=== PATIENT | female | born 1990 | race Caucasian/White ===

== ENCOUNTER 2024-03-02 23:19 | Inpatient (IN) | payer OTHER, SELFPAY ==
[2024-03-02] VITALS (7 sets, daily range): BP systolic 91–110; BP diastolic 49–84; BMI 27.5
[2024-03-02 18:04] LABS: Hematocrit 38.8 % (37.0-47.0); Hemoglobin 13.3 g/dL (12.0-16.0); Mean Corp Hgb Conc. 34.3 g/dL (33.0-37.0); Mean Corpuscular Hgb 29.2 pg (27.0-31.0); Mean Corpuscular Volume 85.3 fL (81.0-99.0); Platelet Count 322 10^3/uL (130-400); Red Blood Cell Count 4.55 10^6/uL (4.20-5.40)
[2024-03-02 18:17] LABS: ALT (SGPT) 53 U/L (0-35); AST (SGOT) 33 U/L (14-36); Albumin 4.3 g/dl (3.5-5.0); Alkaline Phosphatase 66 U/L (38-126); Blood Urea Nitrogen 12 mg/dl (7-17); Calcium 9.5 mg/dl (8.4-10.2); Carbon Dioxide 23 mmol/L (22-30); Chloride 100 mmol/L (98-107); Estimated Creatinine Clearance 108 ml/min; Glucose 121 mg/dl (70-99); Potassium 4.1 mmol/L (3.5-5.1); Sodium 134 mmol/L (135-145); Total Bilirubin 0.9 mg/dl (0.2-1.3); Total Protein 6.9 g/dl (6.3-8.2); eGFR > 60.00
--- NOTE | 2024-03-02 18:17 | ED.GENMED ---
History of Present Illness
General
Chief Complaint: Medication Reaction
Source: patient
Exam Limitations: none
Time Seen by Provider: 03/02/24 17:41
Nursing documentation reviewed up to this point in time: agreed with
Travel History
Have you had any contact with someone who has COVID-19?: No
Do you have any symptoms of coronavirus? Fever > 100 degrees, chills, cough, shortness of breath, sore throat, loss of taste or smell, muscle aches, or headache?: No
History of Present Illness
History of Present Illness:
This a pleasant 34-year-old female that presents with erythema, fever, chest pain, and shortness of breath. She does have a brain tumor and is being treated by [facility]. Patient has been on Temodar. She is in a cycle. She had 2
weeks of it and developed a rash. They paused it temporarily and she restarted it yesterday. She states that her rash returned, much more severe. She comes in today for this rash concerned that she might be having a medication reaction to her
Temodar. She did have a fever and chills. She is on oral control.
Vital signs are stable. Patient not hypoxic
Nursing note reviewed. I agree with nursing documentation up to this point in time.
Home Meds and allergies reviewed.
NUMBER AND COMPLEXITY OF PROBLEMS ADDRESSED AT THE ENCOUNTER
� Chronic conditions affecting care:
� Acute Exacerbation and/or Progression of Chronic Illness:
� Differential Diagnosis includes: Medication reaction, pulmonary embolus, viral syndrome, neutropenic fever
AMOUNT AND/OR COMPLEXITY OF DATA TO BE REVIEWED AND ANALYZED
I performed an independent evaluation of the following and my interpretation is:
EKG:
CT:
X-rays:
Ultrasound:
Laboratory Studies:
Other:
Review of other/old records:
Clinical information was obtained by an independent historian:
Prescriptions/Medications Considered but not given:
Further testing considered but not performed:
RISK OF COMPLICATIONS AND/OR MORBIDITY OR MORTALITY OF PATIENT MANAGEMENT
Social determinants of health affecting care: Good Social Support
Discussion with other providers:
Escalation of care including admission/observation vs risk of discharge considered:
CRITICAL CARE NOTE:
Total Time (exclusive of procedures):
Update:
Past History
Past History
ED Past Medical History: None
ED Past Surgical History: None
Social History
Tobacco: Non-smoker
Alcohol: Occasional
Drug: None
Personal:
Living: with family
Phy Exam
General Physical Exam
General Presentation: well appearing
General age: appears stated age
General Skin: warm and dry
General Habitus: normal
General Mental: alert
General Hydration: appears well hydrated
ENT Exam
ENT Exam: EOMI, pharynx normal, neck supple and normocephalic
Eye Exam
Eye Exam: PERRL, cornea clear and conjunctiva normal
Cardiovascular Exam
Cardiovascular Exam: no edema, no murmur, normal peripheral pulses and tachycardia
Pulmonary Exam
Pulmonary Exam: lungs clear, no respiratory distress, no rales, no crackles, no rhonchi, no stridor, no wheezing and no cough
Gastrointestinal Exam
Gastrointestinal Exam: normal bowel sounds, non tender, soft, no organomegaly, no pulsatile mass and non distended
Neurological Exam
Neurological Exam: alert, oriented x3, no motor deficits and speech normal
Musculoskeletal Exam
Musculoskeletal Exam: full ROM, no edema, neuro vasc intact and other (No nuchal rigidity or other signs of meningismus)
Skin Exam
Skin Exam: normal color, warm/dry, no rash and no petechia
Psychiatric Exam
Psychiatric Exam: normal mood/affect
Course
Orders/Labs/Results
Orders:
Orders
03/02/24 17:39
EKG [Electrocardiogram (*1)] Urgent
Reason for Study: Chest Pain
EKG- Treatment ONCE
03/02/24 17:53
Complete Blood Count/With Diff Urgent
Comment: ADDON
Comprehensive Metabolic Panel Urgent
Troponin I Urgent
03/02/24 18:16
CT Chest Pe Study Urgent
Comment:
Reason For Exam: On chemotherapy, shortness of breath, tachycardia,
03/02/24 18:22
Add On- LAB Urgent
Tests Added?: manual diff
03/02/24 18:43
Diphenhydramine [Benadryl] 25 mg IV NOW STA
03/02/24 19:25
Add On - Microbiology Urgent
Tests Added?: beta hcg
Add On- LAB Urgent
Tests Added?: bhcg
03/02/24 19:27
0.9% Sodium Chloride 500 ml [Nss] 500 ml IV BOLUS
03/02/24 19:34
Beta HCG Quantitative Urgent
Comment: ADD ON
03/02/24 20:41
Acetaminophen [Tylenol] 650 mg PO NOW STA
03/02/24 21:00
COVID-19 Antigen Urgent
Source: Nasal Swab
Influenza A+B Rapid Molecular Urgent
DIOMEDES Source: Nasal Swab
Specimen Description:
03/02/24 22:27
Urine Culture Urgent
DIOMEDES Source: Urine
Specimen Description:
03/02/24 22:43
Lactic Acid Q4H
Comment: CANCEL 2nd LACTIC ACID IF 1st LACTIC ACID IS LESS THAN 2
Blood Culture Q30M
DIOMEDES Source: Blood/Venous
Specimen Description:
Blood Culture Q30M
DIOMEDES Source: Blood/Venous
Specimen Description:
03/02/24 22:47
Admit/Transfer Patient As Directed
Co-Sign Provider:
Level of Care: Inpatient admission
Assign to:: Medical/Surgical
Physician / Group: Hospitalist
Diagnosis: Acute drug reaction
Reason for Hospitalization: Persistent fever
Expected length of stay greater than two midnights?: Yes
ELOS- Estimated Length of Stay in days: 2
I certify the patient meets the requirements for IP care: Yes
03/02/24 22:50
Code Status As Directed
Resuscitation Status: Full Code
03/02/24 22:59
Acetaminophen [Tylenol] 650 mg PO NOW STA
Cefepime HCl [Maxipime] 2,000 mg IV NOW STA
03/02/24 23:00
Flush (0.9% Sodium Chloride) [Flush (Nss)] See Dose Instructions IV PER PROTOCOL
Sterile Water [Sterile Water For Injection] 10 ml IV ONCE ONE
03/03/24 00:53
0.9% Sodium Chloride 1000 ml [Nss] 1,000 ml IV 75 mls/hr
Acetaminophen [Tylenol] 650 mg PO Q4HPRN PRN
Bisacodyl [Dulcolax] 10 mg RECTAL [id number] PRN
Diphenhydramine [Benadryl] 25 mg IV Q4HPRN PRN
Docusate W/Senna [Senokot-S] 1 tablet PO BIDPRN PRN
Ondansetron Injectable [Zofran] 4 mg IV Q6HPRN PRN
Ondansetron Injectable [Zofran] 4 mg IV Q6HPRN PRN
Polyethylene Glycol Powder [Miralax] 17 grams PO DAILYPRN PRN
03/03/24 00:53
Echo 2D MMode Color/Doppler Routine
Reason for Study: pleuritc chest pain, eval pericardial effusion / pericarditis
Consult Notification Routine
Specialty to Notify: Infectious Disease
INFECTIOUS DISEASE CONSULT Routine
Consulting Provider: Rocío Kaplan
Was physician already notified: No
Reason for consult: fever of unknown source
Urinalysis Reflex To Culture Routine
Activity As Directed
Activity Level: With Assistance
Vital Signs As Directed
Frequency: Per unit guidelines
DX Deep Vein Thrombosis Video Routine
03/03/24 06:00
Basic Metabolic Panel IN AM
Complete Blood Count/No Diff IN AM
ESR [Erythrocyte Sed Rate] IN AM
03/03/24 08:00
Triamcinolone Cream [Aristocort/Triamcinolone 0.1% Cream] See Dose Instructions TOPICAL TID
03/03/24 11:00
Cefepime HCl [Maxipime] 2,000 mg IV Q12H
03/03/24 Dinner
Regular
03/03/24 18:00
Enoxaparin Sodium [Lovenox] 40 mg SC QPM
Abnormal Lab Results
03/02/24
17:53
WBC 16.0 H 10^3/uL
(4.8-10.8)
Abs Immat Gran (auto) 0.1 H 10^3/uL
(0-0.05)
Absolute Neuts (auto) 14.4 H 10^3/uL
(1.4-6.5)
Absolute Lymphs (auto) 0.3 L 10^3/uL
(1.2-3.4)
Absolute Monos (auto) 0.7 H 10^3/uL
(0.1-0.6)
Neutrophils % 92.7 H %
(42.2-75.2)
Lymphocytes % 1.8 L %
(20.5-51.1)
Sodium 134 L mmol/L
(135-145)
Glucose 121 H mg/dl
(70-99)
ALT 53 H U/L
(0-35)
03/02/24 17:53
03/02/24 17:53
Vital Signs
Initial and Last Documented VS:
Initial Vital Signs
Temp Pulse Resp BP Pulse Ox
100.4 F H 129 20 98/66 99
03/02/24 16:51 03/02/24 16:51 03/02/24 16:51 03/02/24 16:51 03/02/24 16:51
Last Documented Vital Signs
Temp Pulse Resp BP Pulse Ox
98.8 F 109 16 98/57 96
03/03/24 00:59 03/03/24 00:59 03/03/24 00:59 03/03/24 00:59 03/03/24 00:59
*Critical Care Note
Total Time (30-74mins, 75-104mins- exclusive of procedures): Not Applicable
Update Note
Update Note:
CTA CHEST
IMPRESSION:
Good contrast bolus. Limited by respiratory motion artifact. No central pulmonary embolism seen.
No thoracic aortic aneurysm.
No focal consolidation or pleural effusion.
ED Attending Note
-
Portions of this chart may have been created with voice recognition software.� Occasional wrong word or��sound alike� substitutions may have occurred due to the inherent limitations of voice recognition software.
Discharge Plan
Departure
Patient Disposition: Admit
Date of Disposition: 03/02/24
Time of Disposition: 21:45
Admit to: Telemetry
Presentation/result/management discussed w/ accepting MD/DO: Hospitalist
Condition: Good
Discharge Problem:
Allergic reaction, Fever
Interventions
Interventions:
*Risk Screen - Suicide Last Done: 03/02/24 17:36
*General Assessment Last Done: 03/02/24 17:36
*Neglect/Abuse Screening Last Done: 03/02/24 17:36
ED- Fall Risk Assessment Last Done: 03/03/24 00:46
*ED COVID-19 Vaccine History Last Done: 03/02/24 16:51
*Nursing Disposition Last Done: 03/03/24 00:46
ED-Skin Assessment Last Done: 03/02/24 18:02
ED- Pulmonary Assessment Last Done: 03/02/24 18:02
Discharge Date and Time
Discharge Date/Time: 03/03/24 00:46
[2024-03-02 18:28] LABS: % Basophils 0.2 % (0-2); % Eosinophils 0.5 % (0-6); % Immature Granulocytes 0.4 % (0-0.5); % Lymphocytes 1.8 % (20.5-51.1); % Monocytes 4.4 % (1.7-9.3); % Neutrophils 92.7 % (42.2-75.2); Absolute Eosinophils 0.1 10^3/uL (0-0.7); Absolute Immature Granulocytes 0.1 10^3/uL (0-0.05); Absolute Lymphocytes 0.3 10^3/uL (1.2-3.4); Absolute Monocytes 0.7 10^3/uL (0.1-0.6); Absolute Neutrophils 14.4 10^3/uL (1.4-6.5); Nucleated Red Blood Cells % 0 %
[2024-03-02 18:29] LABS: Troponin I < 0.012 ng/ml
[2024-03-02] MEDS: BENADRYL 25 MG IV (18:53)
[2024-03-02] MEDS: NSS 500 IV (19:32)
[2024-03-02 20:23] LABS: Beta HCG Quantitative < 2.39 mIU/ml
[2024-03-02] MEDS: TYLENOL 650 MG PO ×2 (21:00→23:29)
[2024-03-02 21:43] LABS: COVID-19 Antigen Negative (Negative)
--- NOTE | 2024-03-02 22:30 | HPS.HSE ---
Addendum entered and electronically signed by Estrella Sullivan MD 03/14/24 18:42:
Correction to H&P:
The patient is a 34 y.o female.
Original Note:
Family Physician
-
Family Physician: Memo Martines
Chief Complaint
-
Fever and a rash
History of Present Illness
This is a 4-year-old female with past medical history of brain cancer recently diagnosed and initiated on radiation therapy and chemotherapy who comes into the emergency department with fever and rash after being restarted on the chemotherapy
temozolomide.
Patient reported that she was radiation therapy and chemotherapy for 2 weeks. Thereafter she developed a rash and fever. He had extensive evaluation. There was neutropenia. Was thought to be a drug rash and the temozolomide was discontinued.
Bactrim was also continued. She had persistent fevers and patient was started on Levaquin which she took for 7 days. Blood cultures were negative. No oral infectious source identified. She was thought to have of drug reaction on a viral
infection. Ultimately over the next few days white count came back to normal. She was also prescribed a topical steroid cream and she has been having improvement with this as well. On follow-up the patient was told to restart the temozolomide
which she took today. Within about 1 hour of taking the medication she started having generalized erythema with worsening lesions throughout body and limbs. Denies pruritus. She also reports feeling short of breath and having some palpitations and
substernal sharp chest pain with deep inspiration. Deep inspiration causes mild non-productive cough. Denies any wheezing. She reports headache. She denies any neck pain or stiffness. She denies any sore throat. She denies any oral discomfort.
On arrival in the ED she was normotensive, she was febrile to 102 and tachycardic to the 110s. EKG shows sinus tach at 104. She had chest CT study which was negative for PE and showed no acute infiltrates. White count was 16,000 with an 80%
neutrophils. No bands. Hemoglobin and platelet counts were within normal limits. Chemistries were within normal limits. Troponin was negative.
Medical History
Past Medical History
Past Medical History: Reports Cancer (Brain cancer)
Additional Past Medical History:
Brain Cancer
Past Surgical History: Reports None
Social History
Tobacco: Non-smoker
Alcohol: None
Drug: None
Personal:
Living: With Family
Employment: Employed
Family History
Family History: Not pertinent
Allergies / Home Medications
Allergies reflects when Allergies were last updated in [employer] (acquired by [employer] in 2014).
Home Medications with original date entered in [employer] (acquired by [employer] in 2014)
Allergy/Medication List:
Allergies
Allergy/AdvReac Type Severity Reaction Status Date / Time
No Known Allergies Allergy Unverified 03/02/24 16:52
Home Medications
Lactobac no.2-Bifidobac no.1-S. thermo 112.5 billion cell capsule (Visbiome) 1 cap PO DAILY Supplement 11/03/23
ascorbic acid (vitamin C) 500 mg tablet (Vitamin C) 500 mg PO DAILY Supplement 11/03/23
celecoxib 200 mg capsule 200 mg PO BIDPRN PRN nereve pain 11/03/23
norgestimate 0.18 mg/0.215 mg/0.25 mg-ethinyl estradiol 25 mcg tablet (Fsf-Pn-Aoiqxfgq) 1 tab PO QPM Hormonal Agent 11/03/23
vitamin B complex 1 tab PO DAILY Supplement 11/03/23
acetaminophen 325 mg tablet 650 mg (2 x 325 mg) PO Q4HPRN PRN mild pain/PARRA/temp> 100.4F #1 tab 11/04/23
Review of Systems
-
History Source: Patient and Family
Constitutional: Reports Fever
EENT: Reports No Symptoms
Respiratory: Reports Trouble Breathing
Cardiac: Reports Chest Pain
Abdomen/GI: Reports No Symptoms
: Reports No Symptoms
Musculoskeletal: Reports No Symptoms
Skin: Reports Rash
Neurological: Reports No Symptoms
Endocrine: Reports No Symptoms
Hematologic/Lymphatic: Reports No Symptoms
Psych: Reports No Symptoms
Physical Exam
Vital Signs
Vital Signs
Temp Pulse Resp BP Pulse Ox
101.9 F H 123 28 100/59 95
03/02/24 22:25 03/02/24 22:24 03/02/24 22:24 03/02/24 22:00 03/02/24 22:24
Physical Exam
General: Well Developed, Well Nourished and Appears in Distress
HEENT: NormoCephalic, Moist mucous membranes, Atraumatic, PERRLA and [place] Conjunctivae
Respiratory: Clear
Cardiac: S1/S2 and Tachycardia
Breast: Deferred by me
GI: Soft, Non Tender, Non Distended and Normal Bowel Sounds
Rectal: Deferred by Provider
Genito-urinary: Deferred by me
Musculoskeletal: No Clubbing, No Cyanosis and No Edema
Skin: Warm, Dry and Rash
Neuro: AO x 3
Hematologic/Lymphatic: Lymphadenopathy (left cervical lymphadenopathy)
Psych: Calm
Laboratory Results
-
03/02/24 17:53
03/02/24 17:53
Laboratory Results
Total Bilirubin 0.9 mg/dl (0.2-1.3) 03/02/24 17:53
AST 33 U/L (14-36) 03/02/24 17:53
ALT 53 U/L (0-35) H 03/02/24 17:53
Alkaline Phosphatase 66 U/L (38-126) 03/02/24 17:53
Troponin I < 0.012 ng/ml 03/02/24 17:53
Data Reviewed
-
CT Scan: Report Reviewed by me
Medical Tests (Nuc Med, Echo, EKG etc): Image Personally Visualized and interpreted
Lab Data: Labs Reviewed by me
Old Records: Reviewed
Impression/Plan
-
IMPRESSION:
34 y.o female with brain CA s/p radiation tx and currently on oral chemotherapy who comes in with generalized erythematous rash and target-like lesions after restarting her chemo (temozolamide). She had 2 weeks of the temozolomide then developed a
very similar reaction last week. She reported that she developed rash and fevers approximately 5 hours after taking the medications. Oncology evaluated her and thought she had reaction to temozolomide or bactrim. Temozolamide discontinued and
rash improved. She was then restarted on this medication today with resultant rash (erythematus papules and macules and occasional target like lesions without the erythematous rings. She is tachycardic and febrile but hemodynamically stable. The
lesions are c/w drug eruptions and possibly SJS. However no mucusal involvment, no desquamation. Unlikely SJS. Possibly viral. She has a skin biopsy pending. She has headach but no meningeal signs.
PLAN:
Fever and rash - Suspect acute drug reaction vs an infectious process. No source of infection based on imaging and physical exam. Cannot rule out bacteremia. She is not neutropenic so cannot be said to have neutropenc fever. Possibly EM.
- admit to general medical floor
- discontinue temozolomide (per on-call oncologist)
- s/p benadryl in ED
- supportive care with benadryl, fluids. Holding systemic steroids for now
- given persistent fever and leukocytosis, blood cultures sent and start cefepime, d/c antibiotics if she defervesced after holding temozolomide
- ID consultation
Pleuritic chest pain - Substernal pleuritic chest pain. No PE. No acute consolidation. No effusion. Pain is not reproducible. No wheezing or productive cough. Possibly pneumonitis vs pericarditis.
- echo
- check inflammatory panels
- patient cannot tolerate NSAIDs while on temozolomide
- follow up skin biopsy
Brain Ca
- follow up with [place] [facility] if tomorrow if d/c or monday for her chemo follow up.
DVT PPX with lovenox sq
Full Code
[2024-03-02] MEDS: MAXIPIME 2000 MG IV (23:29)
[2024-03-02] MEDS: STERILE WATER FOR INJECTION 10 ML IV (23:30)
[2024-03-03] VITALS: BP 96/60
[2024-03-03 00:58] VITALS: BMI 27.0
[2024-03-03 00:59] VITALS: BP 98/57
[2024-03-03] MEDS: NSS 1000 IV ×2 (01:21→14:15)
[2024-03-03 06:16] LABS: Urine Albumin Negative (Neg - Trace); Urine Bilirubin Negative (Negative); Urine Character Clear (Clear); Urine Color Yellow; Urine Glucose Negative (Negative); Urine Ketone Negative (Negative); Urine Leukocyte Negative (Negative); Urine Nitrite Negative (Negative); Urine Occult Blood Negative (Negative); Urine Urobilinogen Negative (Neg - 1+)
[2024-03-03 07:00] VITALS: BP 85/63
[2024-03-03] MEDS: TYLENOL 650 MG PO ×2 (08:04→12:05)
[2024-03-03] MEDS: ARISTOCORT/TRIAMCINOLONE 0.1% CREAM 1 APPLIC TOPICAL ×2 (08:05→15:18)
[2024-03-03] MEDS: STERILE WATER FOR INJECTION 10 ML IV (08:05)
[2024-03-03] MEDS: MAXIPIME 2000 MG IV (08:06)
[2024-03-03 08:53] LABS: Hematocrit 34.2 % (37.0-47.0); Hemoglobin 11.5 g/dL (12.0-16.0); Mean Corp Hgb Conc. 33.6 g/dL (33.0-37.0); Mean Corpuscular Hgb 29.1 pg (27.0-31.0); Mean Corpuscular Volume 86.6 fL (81.0-99.0); Mean Platelet Volume 9.8 fL (7.4-10.4); Platelet Count 289 10^3/uL (130-400); Red Blood Cell Count 3.95 10^6/uL (4.20-5.40); Red Cell Dist. Width 12.2 % (11.5-14.5); White Blood Cell Count 8.8 10^3/uL (4.8-10.8)
[2024-03-03 09:25] LABS: Blood Urea Nitrogen 10 mg/dl (7-17); Calcium 8.7 mg/dl (8.4-10.2); Carbon Dioxide 24 mmol/L (22-30); Chloride 103 mmol/L (98-107); Estimated Creatinine Clearance 107 ml/min; Glucose 93 mg/dl (70-99); Potassium 3.9 mmol/L (3.5-5.1); Sodium 135 mmol/L (135-145); eGFR > 60.00
[2024-03-03 09:36] LABS: Erythrocyte Sed Rate 14 mm/hour (0-20)
--- NOTE | 2024-03-03 14:44 | CON.ID ---
Consultation
-
Date/Time Consultation Requested: 03/03/24 00:53
Date/Time Consultation Performed: 03/03/24 14:44
Requesting Provider: Dr Amador
Performing Provider: Dr Kaplan
Reason for Consultation: fever of unknown source
Chief Complaint / Past History
Chief Complaint
Fever and a rash
History of Present Illness
Ms Casas is a 34 year old female with history of brain cancer on radiation/chemotherapy (temozolomide) for the last two weeks. She then developed a rash and fever, also neutropenia. Drug rash was considered and temozolomide was discontinued.
Bactrim was also discontinued; she will get ppx through [facility]. Fevers persisted She was started on levaquin which she took for 7 days withtou imporvement. Leukocytosis resolved. Topical steroid cream improved the rash. She restarted temozolmide
of the day of admission and within 1 hour developed generalized erytheam and worsening rash throughout the body. No pruritus. New shortness of breath, palpitations and pleuritic chest pain. New mild, nonproductive cough, without wheezing.
Since arrival here she was initially febrile to 101.9, bp initially hypotensive then improved this AM again running hypotensive 85/63, wbc on arrival 16 now 8.8, hgb 11.5, plt 289, L shift noted on arrival, cr 0.7, CT chest PE study: no PE or acute
CP process, blood cultures x2 no growth to dateflu negative, covid ag negative, ua negative currently on cefepime, ID is consutled for assistance with management.
Past History
Additional Past Medical History:
as per hpi
Additional Past Surgical History:
none
Allergy History:
No Known Allergies Allergy (Unverified 03/02/24 16:52)
Medications Reviewed: Yes
Social History
Tobacco: Non-Smoker
Alcohol: None
Drug: None
Family History
Family History: Not Pertinent
Review of Systems
Review of Systems
General: Fever and Chills
All systems: All other systems were reviewed and were negative
Vital Signs
Temp Pulse Resp BP Pulse Ox
98.5 F 94 16 85/63 98
03/03/24 07:00 03/03/24 07:00 03/03/24 07:00 03/03/24 07:00 03/03/24 07:00
Physical Exam
Physical Exam
Constitutional: No Acute Distress
Cardiovascular: Regular Rate and S1/S2; Negative Murmur or Rub
Pulmonary: Clear and Symmetric; Negative Wheezes, Rales or Rhonchi
Gastrointestinal: Soft, Non Tender, Non Distended and Normal Bowel Sounds
Skin: Warm and Dry; Negative Rash or Jaundice
Lab / Diagnostic Study Results
03/03/24 08:34
03/03/24 08:34
Abs Immat Gran (auto) 0.1 10^3/uL (0-0.05) H 03/02/24 17:53
Absolute Neuts (auto) 14.4 10^3/uL (1.4-6.5) H 03/02/24 17:53
Absolute Lymphs (auto) 0.3 10^3/uL (1.2-3.4) L 03/02/24 17:53
Absolute Monos (auto) 0.7 10^3/uL (0.1-0.6) H 03/02/24 17:53
Absolute Basos (auto) 0.0 10^3/uL (0-0.2) 03/02/24 17:53
Immature Gran % 0.4 % (0-0.5) 03/02/24 17:53
Neutrophils % 92.7 % (42.2-75.2) H 03/02/24 17:53
Lymphocytes % 1.8 % (20.5-51.1) L 03/02/24 17:53
Monocytes % 4.4 % (1.7-9.3) 03/02/24 17:53
Eosinophils % 0.5 % (0-6) 03/02/24 17:53
Basophils % 0.2 % (0-2) 03/02/24 17:53
ESR 14 mm/hour (0-20) 03/03/24 08:34
Lactic Acid Cancelled 03/03/24 02:45
Microbiology Results
Micro:
03/02/24 22:43 Blood Culture - Pending
Blood/Venous
03/02/24 22:43 Blood Culture - Pending
Blood/Venous
03/02/24 21:00 Influenza Types A & B (KIERSTEN) - Final
Nasal Swab Negative for Influenza A & B, NAAT
Negative results must be combined with clinical observations
and patient history.
Nucleic Acid Amplification test (NAAT)performed on the
[employer] platform.
Assessment / Plan
Probable adverse drug reaction to temozolomide
Fever - resolving
Leukocytosis - resolved
- follow blood cultures
- ua negative
- CT chest no evidence of infection
- rash improving
- strongly suspect drug reaction, no current evidence of infection
- tells me her radiation oncologist says treatment shouldnt be interrupted
- she has levaquin at home and can continue that for another 3 days
- I recommend discharge now; notified hospitalist of my opinion
[2024-03-03 15:00] VITALS: BP 101/65
[2024-03-03] MEDS: STERILE WATER FOR INJECTION IV (15:20)
[2024-03-03] MEDS: MAXIPIME IV (15:20)
--- NOTE | 2024-03-03 15:34 | W.PN.HOSP.TC ---
Today's Communication/Plan
-
Discharge today
Assessment / Plan
Assessment / Plan
Physical Exam
General: Not in acute distress
HEENT: Normocephalic, Moist mucous membranes, Atraumatic
Respiratory: Clear to Auscultation Bilaterally
Cardiac: S1/S2 and RRR
GI: Soft, Non Tender, Non Distended and Normal Bowel Sounds
Musculoskeletal: No Cyanosis and No Edema
Skin: Warm, Dry and Rash
Neuro: AAO x 3
Psych: Calm
Assessment/Plan
34 y.o female with brain CA s/p radiation tx and currently on oral chemotherapy who came in with generalized erythematous rash and target-like lesions after restarting her chemo (temozolamide). She had had 2 weeks of the temozolomide then developed
a very similar reaction last week. She reported that she developed rash and fevers approximately 5 hours after taking the medication. Oncology evaluated her and thought she had reaction to temozolomide or bactrim. Temozolamide discontinued and
rash improved. She was then restarted on this medication yesterday with resultant rash (erythematus papules and macules and occasional target like lesions without the erythematous rings. She was tachycardic and febrile but hemodynamically stable.
The lesions are c/w drug eruptions and possibly SJS. However no mucusal involvment, no desquamation. Unlikely SJS. Possibly viral. She has a skin biopsy pending with an outpatient dynamics ax solution architect. She had headache but no meningeal signs.
Fever and rash - Suspect acute drug reaction vs. an infectious process (infectious process is less likely). No source of infection based on imaging and physical exam. Cannot rule out bacteremia. She is not neutropenic so cannot be said to have
neutropenic fever. Possibly EM.
- discontinue temozolomide (per on-call oncologist)
- s/p benadryl in ED
- supportive care with benadryl, fluids. Holding systemic steroids for now
- given persistent fever and leukocytosis, blood cultures sent and start cefepime, d/c antibiotics if she defervesced after holding temozolomide
- ID consultation recommendations appreciated: can continue home Levaquin for another 3 days
Pleuritic chest pain - Substernal pleuritic chest pain. No PE. No acute consolidation. No effusion. Pain is not reproducible. No wheezing or productive cough. Possibly pneumonitis vs pericarditis.
- Follow-up outpatient
Brain Cancer
- follow up with [place] [facility] tomorrow
DVT Prophylaxis with Lovenox subq
Full Code
More than 30 minutes spent in discharge including
Final examination of the patient
Summarizing hospital stay
Instructions for continuing care to all relevant caregivers
Preparation of discharge records, prescriptions, and referral forms
Total time spent (in minutes): 39
Anticipated Discharge: Today
Subjective/Interval History
-
Date of Service: March 03, 2024
Patient was seen and examined. She reported that the redness on her skin and shortness of breath are much better.
Objective Data
-
Labs:
Laboratory Results
03/03/24
08:34
WBC 8.8
Hgb 11.5 L
Hct 34.2 L
Plt Count 289
Sodium 135
Potassium 3.9
Chloride 103
Carbon Dioxide 24
BUN 10
Creatinine 0.7
Glucose 93
Calcium 8.7
Vital Signs:
Vital Signs
Temp Pulse Resp BP Pulse Ox
98.5 F 94 16 85/63 98
03/03/24 07:00 03/03/24 07:00 03/03/24 07:00 03/03/24 07:00 03/03/24 07:00
I&O
03/02/24 03/03/24 03/04/24
06:59 06:59 06:59
Intake Total 623 / 623
Output Total 650 / 650
Balance -27 / -27
--- NOTE | 2024-03-03 15:50 | CON.ONC ---
Impression
Impression
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
rash - possible allergic reaction to temodar
Plan
Plan
1. Grade III astrocytoma - return to [facility] tomorrow for continued XRT - f/u med/onc at [facility] Dr. Mcarthur.
2. Rash - potentially related to temodar - would hold and f/u at [facility] for discussion of future treatment options for brain malignancy.
Patient History
History of Present Illness
34y/o female seen in consultation today regarding grade III astrocytoma, s/p resection at [facility], currently receiving proton beam XRT.
She initially attempted concurrent temodar and radiation, but developed rash and symptoms concerning for allergic reaction. Temodar was being given along w/ bactrim for PCP prophylaxis. Both were stopped. W/ resolution of rash off both meds, it was
unclear which agent caused the rash. She was restarted on temodar alone yesterday w/ recurrence of rash prompting presentation to the ER at [place]. W/ benedryl and fluids rash has improved.
She is scheduled for discharge later today to f/u w/ her physicians at [place] tomorrow.
She denies fevers or chills. No SOB, chest pain, or palpitations. Patient denies abdominal pain.
Past-Medical/Surgical History
Past Medical History
grade III astrocytoma -- s/p resection - currently receiving proton beam at [facility] - Dr. Michelle Morales
Social History
Tobacco: Non-smoker
Alcohol: None
Drug: None
Personal:
Living: With Family
Employment: Employed
Family History
Family History: Not pertinent
Allergies: Temodar
Patient Medication
�Medication �Instructions �Recorded �Confirmed �Last Taken �Type
Lactobac no.2-Bifidobac no.1-S. 1 cap PO DAILY Supplement 11/03/23 11/03/23 11/03/23 History
thermo 112.5 billion cell capsule
(Visbiome)
ascorbic acid (vitamin C) 500 mg 500 mg PO DAILY Supplement 11/03/23 11/03/23 11/03/23 History
tablet (Vitamin C)
celecoxib 200 mg capsule 200 mg PO BIDPRN PRN nereve pain 11/03/23 11/03/23 11/02/23 History
norgestimate 0.18 mg/0.215 mg/0.25 1 tab PO QPM Hormonal Agent 11/03/23 11/03/23 11/02/23 History
mg-ethinyl estradiol 25 mcg tablet
(Qxp-Fm-Gcpxqxvs)
vitamin B complex 1 tab PO DAILY Supplement 11/03/23 11/03/23 11/03/23 History
acetaminophen 325 mg tablet 650 mg (2 x 325 mg) PO Q4HPRN PRN 11/04/23 Unknown Rx
mild pain/PARRA/temp> 100.4F #1 tab
Active Medications
Generic Name Dose Route Start Last Admin
Trade Name Freq PRN Reason Stop Dose Admin
Acetaminophen 650 mg 03/03/24 00:53 03/03/24 12:05
Acetaminophen 325 Mg Tablet PO 03/31/24 00:52 650 mg
Q4HPRN PRN Administration
mild pain/PARRA/temp> 100.4F
Bisacodyl 10 mg 03/03/24 00:53
Bisacodyl 10 Mg Rectal Suppository RECTAL 03/31/24 00:52
[id number] PRN
constipation
Cefepime HCl 2,000 mg 03/03/24 08:00 03/03/24 15:20
Cefepime Hcl 2,000 Mg/12.5 Ml Vial IV Not Given
Q8H BEULAH
Diphenhydramine HCl 25 mg 03/03/24 00:53
Diphenhydramine 50 Mg/Ml 1 Ml Vial IV 03/31/24 00:52
Q4HPRN PRN
itching
Enoxaparin Sodium 40 mg 03/03/24 18:00
Enoxaparin Sodium 40 Mg/0.4 Ml Syringe SC 03/31/24 17:59
QPM BEULAH
Sodium Chloride 1,000 mls @ 75 mls/hr 03/03/24 00:53 03/03/24 14:15
Nss IV 1,000 mls
.[id number] BEULAH Administration
Ondansetron HCl 4 mg 03/03/24 00:53
Ondansetron 4 Mg/2 Ml Vial IV 03/31/24 00:52
Q6HPRN PRN
nausea and vomiting
Ondansetron HCl 4 mg 03/03/24 00:53
Ondansetron 4 Mg/2 Ml Vial IV 03/31/24 00:52
Q6HPRN PRN
NAUSEA/VOMITING
Polyethylene Glycol 17 grams 03/03/24 00:53
Polyethylene Glycol Powder 17 Grams Packet PO 03/31/24 00:52
DAILYPRN PRN
constipation
Senna/Docusate Sodium 1 tablet 03/03/24 00:53
Docusate W/Senna (Kateryna-Colace) Tablet PO 03/31/24 00:52
BIDPRN PRN
constipation
Sodium Chloride 0 flush 03/02/24 23:00
Sodium Chloride 0.9% (Flush) Syringe IV 03/30/24 22:59
PER PROTOCOL BEULAH
Sterile Water 10 ml 03/03/24 08:00 03/03/24 15:20
Sterile Water For Injection 10 Ml Vial IV 03/31/24 07:59 Not Given
Q8H BEULAH
Triamcinolone Acetonide 0 applic 03/03/24 08:00 03/03/24 15:18
Tramcinolone Acetonide 0.1% (Cream) 15 Gram Tube TOPICAL 03/31/24 07:59 1 applic
TID BEULAH Administration
Review of Systems
-
A ROS was completed w/ pertinent findings as per HPI.
Physical Exam
-
General: Well Developed and No Apparent Distress
HEENT: Negative Jaundice
Cardiology: Normal Sinus Rhythm
Pulmonary: Clear
GI: Soft and Normal Bowel Sounds
Neurology: Non Focal
Skin: Other (erythematous maculopapular rash arms and legs)
Labs
Lab Results
WBC 8.8 10^3/uL (4.8-10.8) 03/03/24 08:34
RBC 3.95 10^6/uL (4.20-5.40) L 03/03/24 08:34
Hgb 11.5 g/dL (12.0-16.0) L 03/03/24 08:34
Hct 34.2 % (37.0-47.0) L 03/03/24 08:34
MCV 86.6 fL (81.0-99.0) 03/03/24 08:34
MCH 29.1 pg (27.0-31.0) 03/03/24 08:34
MCHC 33.6 g/dL (33.0-37.0) 03/03/24 08:34
RDW 12.2 % (11.5-14.5) 03/03/24 08:34
Plt Count 289 10^3/uL (130-400) 03/03/24 08:34
MPV 9.8 fL (7.4-10.4) 03/03/24 08:34
Abs Immat Gran (auto) 0.1 10^3/uL (0-0.05) H 03/02/24 17:53
Absolute Neuts (auto) 14.4 10^3/uL (1.4-6.5) H 03/02/24 17:53
Absolute Lymphs (auto) 0.3 10^3/uL (1.2-3.4) L 03/02/24 17:53
Absolute Monos (auto) 0.7 10^3/uL (0.1-0.6) H 03/02/24 17:53
Absolute Eos (auto) 0.1 10^3/uL (0-0.7) 03/02/24 17:53
Absolute Basos (auto) 0.0 10^3/uL (0-0.2) 03/02/24 17:53
Immature Gran % 0.4 % (0-0.5) 03/02/24 17:53
Neutrophils % 92.7 % (42.2-75.2) H 03/02/24 17:53
Lymphocytes % 1.8 % (20.5-51.1) L 03/02/24 17:53
Monocytes % 4.4 % (1.7-9.3) 03/02/24 17:53
Eosinophils % 0.5 % (0-6) 03/02/24 17:53
Basophils % 0.2 % (0-2) 03/02/24 17:53
Creatinine 0.7 mg/dL (0.6-1.0) 03/03/24 08:34
Vital Signs
Vital Signs
Temp Pulse Resp BP Pulse Ox
98.5 F 94 16 85/63 98
03/03/24 07:00 03/03/24 07:00 03/03/24 07:00 03/03/24 07:00 03/03/24 07:00
--- NOTE | 2024-03-03 16:03 | W.DS.TRANS ---
DC Summary - [employer]
-
Discharge Instructions:
Discharge Diagnosis/Procedures Fever and rash - Suspect acute drug reaction vs.
an infectious process (infectious process is
less likely).
Pleuritic chest pain
Brain Cancer
Diet As tolerated
Activity As tolerated
Instructions:
Stand-Alone Forms:
Changes to Home Medications: Yes
Discharge Medications:
DC Medications w/original date entered in [facility]
Lactobac no.2-Bifidobac no.1-S. thermo 112.5 billion cell capsule (Visbiome) 1 cap PO DAILY Supplement 11/03/23
ascorbic acid (vitamin C) 500 mg tablet (Vitamin C) 500 mg PO DAILY Supplement 11/03/23
celecoxib 200 mg capsule 200 mg PO BIDPRN PRN nereve pain 11/03/23
norgestimate 0.18 mg/0.215 mg/0.25 mg-ethinyl estradiol 25 mcg tablet (Qxg-Il-Nutrdnqh) 1 tab PO QPM Hormonal Agent 11/03/23
vitamin B complex 1 tab PO DAILY Supplement 11/03/23
acetaminophen 325 mg tablet 650 mg (2 x 325 mg) PO Q4HPRN PRN mild pain/PARRA/temp> 100.4F #1 tab 11/04/23
Home Medication Changes
Celecoxib held as patient says she should not take any NSAIDs.
Pending Results: Yes
Additional Pending Results:
Results from Microbiology/Blood Culture studies from hospitalization
Total time spent discharging patient (in min): 39
[2024-03-03 16:05] VITALS: BP 101/65
--- NOTE | 2024-03-03 16:08 | CM ---
Initial assessment completed with pt at bedside.
Pt is a 34yr old admitted after she had a possible reaction to her Chemo medication.
Pt lives with her sig other in a multi level home and is indep at baseline
Pt is anxious due to a Radiation Appointment that is on 03/04/24. aware and will attempt for dc.
PLAN; home no needs identified
--- NOTE | 2024-03-05 20:51 | W.DCSUMMARY ---
Discharge Summary
Discharge Data
Date of Admission: 03/02/24
Date of Discharge: 03/03/24
Total time spent discharging patient (in min): 39
-
Pending Results: Yes
Additional Pending Results:
Results from Microbiology/Blood Culture studies from hospitalization
Hospital Course
34-year-old female with past medical history of brain cancer recently diagnosed and initiated on radiation therapy and chemotherapy who presented to the emergency department with fever and rash after being restarted on the chemotherapy temozolomide.
Patient's Temozolomide was recently stopped prior to this episode because of concerns of drug rash, and since she had persistent fevers, patient was started on Levaquin antibiotics. Patient saw a wax cutter who performed a biopsy of her rash. On
follow-up, the patient was told to restart the temozolomide but within about 1 hour of taking the medication, she started having generalized erythema with worsening skin lesions throughout body and limbs; she also reported feeling short of breath
and having some palpitations and substernal sharp chest pain with deep inspiration. On arrival in the emergency department, patient was normotensive, she was febrile to 102 F and tachycardic to the 110s beats per minute. Electrocardiogram showed
sinus tachycardia at 104 bpm. She had a chest CT study which was negative for pulmonary embolism and showed no acute infiltrates. White count was 16,000 with an 80% neutrophils. Patient received Benadryl.
Patient's shortness of breath and chest pain resolved, however the rash persisted. She was started on intravenous antibiotics and infectious disease was consulted. Infectious Disease's impression was that patient's symptoms were most likely
explained by a drug reaction, and that there was no evidence of infection at the time, infectious disease recommended discharging the patient so she could continue getting her cancer treatments including radiation, the following day. Patient was
noted to have home Levaquin which she could finish at home.
Discharge Plan
-
Patient Disposition: Home (Routine Discharge)
Discharge Diagnosis/Procedures: Fever and rash - Suspect acute drug reaction vs. an infectious process (infectious process is less likely).
Pleuritic chest pain
Brain Cancer
Condition: Fair
Diet: As tolerated
Activity: As tolerated
Activity Restrictions/Additional Instructions:
Follow-up with [facility] tomorrow for your appointment.
If you feel worse or you have any new symptoms, please return to the emergency room right away.
Referrals:
Memo Martines, [Family Provider] - in one to two days
Additional Discharge Medication Instructions: Celecoxib held as patient says she should not take any NSAIDs.
Prescriptions:
Continued
ascorbic acid (vitamin C) [Vitamin C] 500 mg Tablet
500 mg PO DAILY
vitamin B complex Tablet
1 tab PO DAILY
norgestimate-ethinyl estradiol [Nqc-Bk-Teycpwtp] 0.18/0.215/0.25 mg-25 mcg Tablet
1 tab PO QPM
Visbiome 112.5 billion cell Capsule
1 cap PO DAILY
acetaminophen 325 mg Tablet
650 mg PO Q4HPRN PRN (Reason: mild pain/PARRA/temp> 100.4F) Qty: 1 0RF
Rx Instructions:
buy over the counter
Held
celecoxib 200 mg Capsule
200 mg PO BIDPRN PRN (Reason: nereve pain)
Hold Instructions: Resume on 03/18/24. Discuss with your outpatient physicians and resume it if they say okay to resume.
Discharge Orders:
Discharge Patient (As Directed); Ordered 03/03/24
Ordered By: Je Drake
Discharge Date and Time
Discharge Date/Time: 03/03/24 16:45
Print Language: ANGOLAN
== END 2024-03-03 16:45 | disposition home or self-care (01) | DRG 607 ==
LOC: 3 WEST ACU 23:19
PROVIDERS: ADMITTING PHYSICIAN Internal Medicine; ATTENDING PHYSICIAN Hospitalist; CONSULT PHYSICIAN Internal Medicine Hematology & Oncology; CONSULT PHYSICIAN Student in an Organized Health Care Education/Training Program; EMERGENCY PHYSICIAN Student in an Organized Health Care Education/Training Program; FAMILY PHYSICIAN Family Medicine
DX: L27.0 Generalized skin eruption due to drugs and medicaments taken internally (principal); C71.9 Malignant neoplasm of brain, unspecified; R21 Rash and other nonspecific skin eruption; T45.1X5A Adverse effect of antineoplastic and immunosuppressive drugs, initial encounter; Z11.52 Encounter for screening for COVID-19; R07.2 Precordial pain; R50.9 Fever, unspecified
CPT/HCPCS: 71275; 80048; 80053; 81003; 83605; 84484; 84702; 85025; 85027; 85652; 87040; 87502; 87811; 93005; 96374; 96375; 99285; Q9967

== ENCOUNTER → 2025-06-03 14:49 | Outpatient (REF) | payer OTHER, SELFPAY | LOC: HWRAD 14:49 | PROVIDERS: ATTENDING PHYSICIAN Family Medicine | DX: E01.0 Iodine-deficiency related diffuse (endemic) goiter (principal) | CPT/HCPCS: 76536 ==